=== PATIENT | female | born 1980 | race Caucasian/White ===

== ENCOUNTER 2020-07-13 17:48 | Inpatient (IN) ==
[2020-07-13 18:16] LABS: Bacteria,Urine Few per hpf (None-Few); Bilirubin,Urine Negative (Negative); Blood,Urine Small (Negative); Clarity,Urine Clear (Clear); Color,Urine Colorless (Yellow); Glucose,Urine (UA) Normal (Normal); Ketones,Urine Negative (Negative); Leukocyte Esterase,Urine Small (Negative); Mucus,Urine Few per lpf (None-Few); Nitrite,Urine Negative (Negative); PH,Urine 6.5 pH Units (5.0-8.0); Protein,Urine Negative (Neg-Trace); Specific Gravity,Urine 1.015 (1.010-1.025); Squamous Epithelial Cell,Urine Few per hpf (None-Few); Urobilinogen,Urine Normal (Normal); WBC,Urine 15-30 per hpf (0-3)
[2020-07-13 18:28] LABS: Amphetamine Screen,Urine Positive ng/mL (Cutoff=1000); Barbiturate Screen,Urine Negative ng/mL (Cutoff=200); Benzodiazepines Screen,Urine Negative ng/mL (Cutoff=200); Cannabinoid Screen,Urine Positive ng/mL (Cutoff = 50); Cocaine Screen,Urine Negative ng/mL (Cutoff= 300); Opiate Screen,Urine Negative ng/mL (Cutoff=300); Phencyclidine Screen,Urine Negative ng/mL (Cutoff=25)
[2020-07-13 18:35] LABS: Basophils % 0.4 %; Eosinophils # 0.1 K/mcL (0.0-0.6); Eosinophils % 1.2 %; Hematocrit 41.8 % (35.3-44.9); Hemoglobin 13.2 g/dL (11.5-15.4); Immature Granulocytes % 0.4 % (0-4); Lymphocytes # 1.6 K/mcL (0.6-4.6); Lymphocytes % 20.2 %; Mean Corpuscular HGB Conc 31.6 g/dL (31.6-35.5); Mean Corpuscular Hemoglobin 29.5 pg (28.0-33.3); Mean Corpuscular Volume 93.3 fL (83.0-100.0); Mean Platelet Volume 10.8 fL (9.4-12.4); Monocytes # 0.7 K/mcL (0.0-1.3); Monocytes % 8.5 %; Neutrophils # 5.4 K/mcL (1.6-8.9); Platelet Count 184 K/mcL (140-400); Red Blood Count 4.48 M/mcL (3.82-4.97); Red Cell Distribution Width 12.8 % (11.5-14.5); Segmented Neutrophils % 69.3 %; White Blood Count 7.8 K/mcL (4.3-11.1)
[2020-07-13 18:54] LABS: Acetaminophen < 10 mcg/mL (10-20); BUN/Creatinine Ratio 22 (6-26); Blood Urea Nitrogen 13 mg/dL (6-20); Carbon Dioxide 28 mEq/L (23-29); Chloride 104 mEq/L (98-107); Ethanol < 10 mg/dL (Less than 10); Glucose 137 mg/dL (70-105); Osmolality,Calculated 288 (280-300); Potassium 3.6 mEq/L (3.5-5.1); Salicylate < 2.5 mg/dL (15.0-30.0); Sodium 138 mEq/L (136-145); eGFR For African Americans > 60 (> 60); eGFR For Non-African Americans > 60 (> 60)
[2020-07-13 19:07] LABS: Thyroid Stimulating Hormone 0.949 mcIU/mL (0.340-5.600)
[2020-07-13] MEDS ORDERED: cephALEXin 500 MG CAPSULE PO ONE (19:24)
[2020-07-13] MEDS ORDERED: Haloperidol Lactate 5 MG/ML VIAL IM PRN (21:37)
[2020-07-13] MEDS ORDERED: *HR* LORazepam 2 MG/ML VIAL IM PRN (21:37)
[2020-07-13] MEDS ORDERED: haloperidoL 5 MG TABLET PO PRN (21:37)
[2020-07-13] MEDS ORDERED: *HR* LORazepam 1 MG TABLET PO PRN (21:37)
[2020-07-13] MEDS ORDERED: MOM Conc 10 ML UD.LIQ PO PRN (21:37)
[2020-07-13] MEDS ORDERED: Mag Hydrox/Al Hydrox/Simeth 30 ML UDC PO PRN (21:37)
[2020-07-13] MEDS: Acetaminophen 325 MG TABLET PO PRN (23:21)
[2020-07-13] MEDS: hydrOXYzine pamoate 25 MG CAPSULE PO PRN (23:22)
[2020-07-13] MEDS: QUEtiapine Fumarate 25 MG TABLET PO PRN (23:22)
[2020-07-14] MEDS ORDERED: Nicotine 14 MG PATCH.TD24 TD SCH (09:00)
[2020-07-14] MEDS: Acetaminophen 325 MG TABLET PO PRN ×2 (13:26→21:16)
[2020-07-14] MEDS: hydrOXYzine pamoate 25 MG CAPSULE PO PRN ×2 (13:27→21:14)
[2020-07-14] MEDS: Mirtazapine 15 MG TABLET PO SCH (21:13)
[2020-07-14] MEDS: QUEtiapine Fumarate 25 MG TABLET PO PRN (21:14)
[2020-07-15] MEDS: Acetaminophen 325 MG TABLET PO PRN ×2 (06:33→15:11)
[2020-07-15] MEDS: Mirtazapine 15 MG TABLET PO SCH (20:03)
[2020-07-15] MEDS: hydrOXYzine pamoate 25 MG CAPSULE PO PRN (20:05)
[2020-07-15] MEDS: QUEtiapine Fumarate 25 MG TABLET PO PRN (20:05)
[2020-07-16 08:57] VITALS: BP 116/76
== END 2020-07-16 11:00 | disposition home or self-care (01) | DRG 751 ==
LOC: EMEROOARM 17:48 → 1ANU 21:32
PROVIDERS: ADMIT Psychiatry & Neurology Psychiatry; ATTEND Psychiatry & Neurology Psychiatry